=== PATIENT | female | born 1975 | race Caucasian/White ===

== ENCOUNTER 2021-04-23 19:04 | Observation (INO) ==
[2021-04-23] MEDS ORDERED: Isovue-370 500 ML BOTTLE IVP ONE (19:08)
[2021-04-23] MEDS ORDERED: 0.9 % Sodium Chloride 1,000 ML IVC ONE (19:08)
[2021-04-23 19:22] LABS: Hematocrit 39.9 % (35.3-44.9); Hemoglobin 12.4 g/dL (11.5-15.4); Mean Corpuscular HGB Conc 31.1 g/dL (31.6-35.5); Mean Corpuscular Hemoglobin 28.7 pg (28.0-33.3); Mean Corpuscular Volume 92.4 fL (83.0-100.0); Mean Platelet Volume 9.6 fL (9.4-12.4); Platelet Count 337 K/mcL (140-400); Red Blood Count 4.32 M/mcL (3.82-4.97); Red Cell Distribution Width 14.2 % (11.5-14.5); White Blood Count 9.2 K/mcL (4.3-11.1)
[2021-04-23 19:34] LABS: INR 1.2; Prothrombin Time 12.9 Seconds (9.4-12.1)
[2021-04-23 19:37] LABS: Activated Partial Thrombo Time 30.2 Seconds (26.0-36.0)
[2021-04-23 19:41] LABS: BUN/Creatinine Ratio 13 (6-26); Blood Urea Nitrogen 11 mg/dL (6-20); Carbon Dioxide 32 mEq/L (23-29); Chloride 99 mEq/L (98-107); Creatine Kinase 22 Units/L (30-223); Glucose 160 mg/dL (70-105); Osmolality,Calculated 285 (280-300); Potassium 3.3 mEq/L (3.5-5.1); Sodium 136 mEq/L (136-145); Troponin I < 0.03 ng/mL (< 0.04); eGFR For African Americans > 60 (> 60); eGFR For Non-African Americans > 60 (> 60)
[2021-04-23] MEDS ORDERED: Aspirin 325 MG TABLET PO ONE (21:14)
[2021-04-23] MEDS ORDERED: Acetaminophen 325 MG TABLET PO PRN (21:53)
[2021-04-23] MEDS ORDERED: *HR* Promethazine 25 MG/ML VIAL IM PRN (21:53)
[2021-04-23] MEDS ORDERED: Melatonin 3 MG TABLET PO PRN (21:53)
[2021-04-23] MEDS ORDERED: Ondansetron 4 MG/2 ML VIAL IVP PRN (21:53)
[2021-04-23] MEDS ORDERED: Naloxone 0.4 MG/ML INJ IVP PRN (21:53)
[2021-04-23] MEDS ORDERED: Perflutren Lipid Microsphere 1.3 ML in 0.9 % Sodium Chloride 8.7 ML IVP PRN (22:20)
[2021-04-24 05:38] LABS: Basophils % 0.5 %; Eosinophils # 0.5 K/mcL (0.0-0.6); Eosinophils % 6.1 %; Hematocrit 39.2 % (35.3-44.9); Hemoglobin 12.3 g/dL (11.5-15.4); Immature Granulocytes % 0.2 % (0-4); Lymphocytes # 2.6 K/mcL (0.6-4.6); Lymphocytes % 31.9 %; Mean Corpuscular HGB Conc 31.4 g/dL (31.6-35.5); Mean Corpuscular Hemoglobin 29.4 pg (28.0-33.3); Mean Corpuscular Volume 93.6 fL (83.0-100.0); Mean Platelet Volume 9.7 fL (9.4-12.4); Monocytes # 1.3 K/mcL (0.0-1.3); Monocytes % 15.4 %; Neutrophils # 3.7 K/mcL (1.6-8.9); Platelet Count 339 K/mcL (140-400); Red Blood Count 4.19 M/mcL (3.82-4.97); Red Cell Distribution Width 14.2 % (11.5-14.5); Segmented Neutrophils % 45.9 %; White Blood Count 8.2 K/mcL (4.3-11.1)
[2021-04-24 05:45] LABS: INR 1.1; Prothrombin Time 11.9 Seconds (9.4-12.1)
[2021-04-24 06:56] LABS: Alanine Aminotransferase 7 Units/L (7-52); Albumin 3.4 g/dL (3.5-5.7); Alkaline Phosphatase 69 Units/L (34-104); Aspartate Amino Transferase 8 Units/L (13-39); BUN/Creatinine Ratio 14 (6-26); Bilirubin,Total 0.3 mg/dL (0.3-1.0); Blood Urea Nitrogen 10 mg/dL (6-20); Carbon Dioxide 29 mEq/L (23-29); Chloride 105 mEq/L (98-107); Chol/HDL Ratio 4.1 (0-4.9); Cholesterol 146 mg/dL (< 200); Globulin 3.3 g/dL (2.4-3.5); Glucose 104 mg/dL (70-105); HDL Cholesterol 36 mg/dL (40-59); LDL Cholesterol,Calculated 81 mg/dL (< 100); Magnesium 1.8 mg/dL (1.6-2.6); Osmolality,Calculated 287 (280-300); Phosphorous 3.2 mg/dL (2.7-4.5); Potassium 4.2 mEq/L (3.5-5.1); Sodium 139 mEq/L (136-145); Total Protein 6.7 g/dL (6.4-8.9); Triglycerides 146 mg/dL (< 150); eGFR For African Americans > 60 (> 60); eGFR For Non-African Americans > 60 (> 60)
[2021-04-24 07:53] LABS: Estimated Average Glucose 123 mg/dl; Hemoglobin A1C 5.9 %
[2021-04-24] MEDS: Aspirin Enteric Coated 81 MG Tablet PO SCH (08:01)
[2021-04-24] MEDS: *HR* HYDROcodone/Acet 5/325 mg TABLET PO PRN ×2 (11:48→23:05)
[2021-04-24 17:09] LABS: Bacteria,Urine Few per hpf (None-Few); Bilirubin,Urine Negative (Negative); Blood,Urine Negative (Negative); Clarity,Urine Turbid (Clear); Color,Urine Yellow (Yellow); Glucose,Urine (UA) Normal (Normal); Ketones,Urine Negative (Negative); Leukocyte Esterase,Urine Trace (Negative); Mucus,Urine Few per lpf (None-Few); Nitrite,Urine Positive (Negative); Protein,Urine Trace mg/dL (Neg-Trace); RBC,Urine 0-3 per hpf (0-3); Specific Gravity,Urine 1.017 (1.010-1.025); Squamous Epithelial Cell,Urine Few per hpf (None-Few); Urobilinogen,Urine Normal (Normal)
[2021-04-24 18:25] LABS: Amphetamine Screen,Urine Negative ng/mL (Cutoff=1000); Barbiturate Screen,Urine Negative ng/mL (Cutoff=200)
[2021-04-24 18:26] LABS: Benzodiazepines Screen,Urine Negative ng/mL (Cutoff=300); Cannabinoid Screen,Urine Negative ng/mL (Cutoff = 50); Cocaine Screen,Urine Negative ng/mL (Cutoff= 300); Opiate Screen,Urine Positive ng/mL (Cutoff=300); Phencyclidine Screen,Urine Negative ng/mL (Cutoff=25)
[2021-04-24] MEDS: Pregabalin 25 MG CAPSULE PO SCH (20:22)
[2021-04-25 06:18] VITALS: O2SAT 94
[2021-04-25] MEDS: Pregabalin 25 MG CAPSULE PO SCH (08:23)
[2021-04-25] MEDS: Aspirin Enteric Coated 81 MG Tablet PO SCH (08:23)
[2021-04-25] MEDS: *HR* HYDROcodone/Acet 5/325 mg TABLET PO PRN (08:25)
[2021-04-25 10:20] VITALS: BP 110/75; PULSE 98; TEMP 98.1
== END 2021-04-25 13:03 | disposition home or self-care (01) ==
LOC: EMEROOARM 19:04 → 3ANU 19:04 → SUATTDRO 21:32 → 3ANU 22:01
PROVIDERS: ADMIT Family Medicine; ATTEND Family Medicine